=== PATIENT | female | born 1985 | race Caucasian/White ===

== ENCOUNTER → 2017-10-11 | Outpatient (CLI) | payer OTHER ==
[~2017-10-11] MED LIST: PRENTAB26 PO
== END | disposition home or self-care (01) ==
LOC: C.LABSPEC 16:58
PROVIDERS: ATTEND Obstetrics & Gynecology
DX: Z34.81 Encounter for supervision of other normal pregnancy, first trimester (principal)

== ENCOUNTER → 2017-10-18 | Outpatient (CLI) | payer OTHER | END | disposition home or self-care (01) | LOC: C.PAPS 10:54 | PROVIDERS: ATTEND Obstetrics & Gynecology | DX: O26.849 Uterine size-date discrepancy, unspecified trimester (principal); Z34.81 Encounter for supervision of other normal pregnancy, first trimester ==

== ENCOUNTER → 2017-10-18 | Outpatient (CLI) | payer OTHER | END | disposition home or self-care (01) | LOC: C.LABSPEC 17:49 | PROVIDERS: ATTEND Obstetrics & Gynecology | DX: Z34.83 Encounter for supervision of other normal pregnancy, third trimester (principal) ==

== ENCOUNTER 2018-05-22 03:15 | Inpatient (IN) ==
[2018-05-22] MEDS ORDERED: OXYTOCIN 30 UNITS/500 ML BAG IV PRN ×2 (03:48→05:44)
[2018-05-22] MEDS ORDERED: LACTATED RINGER'S 1,000 ML IV PRN (03:48)
--- NOTE | 2018-05-22 03:56 | History & Physical Report ---
Date of Service May 22, 2018 Assessment & Plan (1) 40 weeks gestation of : 33yo @ 40 2, spontaneous labor Admit to L&D, prepare for quick delivery. History of Present Illness Chief Complaint: labor Primary Care Provider: NO PCP 33yo @ 40 2 presents in spontaneous labor. SROM clear fluid at home, and contractions. + movement, no vaginal bleeding. uncomplicated. Allergies Allergy/AdvReac Type Severity Reaction Status Date / Time No Known Allergies Allergy Verified 05/22/18 03:54 Home Medications Home Medications Medication Instructions Recorded Confirmed Type Multivit/Min/Iron/Fol Ac/Pren 1 tab PO DAILY #1 tab 02/01/14 History ( Vitamin) Patient History Medical History [place] teeth extracted at age 20 Surgical History History of colposcopy 2004 Physical Exam Vital Signs (Past 24 Hours): Last Vital Signs Pulse 71 05/22/18 03:51 BP 116/71 05/22/18 03:51 Physical Exam: Gen: AAOx3 NAD CV: RRR L: CTAB Abd: soft, gravid Ext: no edema SVE: complete dilation, +2 station on arrival FHT: unable to obtain tracing prior to delivery, as patient arrived completely dilated and ready to push
[2018-05-22] MEDS ORDERED: LACTATED RINGER'S 1,000 ML IV SCH (04:00)
--- NOTE | 2018-05-22 04:01 | Procedure Note ---
Vaginal Delivery Summary Date of Service May 22, 2018 Vaginal Delivery Summary Predelivery diagnoses: 33-year-old at 40 weeks 2 days, spontaneous labor Post delivery diagnoses: Same Procedure: Spontaneous vaginal delivery, repair of first-degree perineal laceration and left periurethral/labial laceration Findings: Viable female , Apgars 8 and 9, first-degree perineal laceration and left periurethral/labial laceration. Weight pending, please see nursery records. Surgeon: Dr. Lynn Estimated blood loss: 300 mL [place] Complications: None Procedure: The patient presented in spontaneous labor, and on arrival to labor and delivery was completely dilated with +2 station and ready to push. Due to quick nature of delivery, unable to obtain heart tracing. However, heart tones were auscultated in the 110s. The patient began to push, and spontaneously vaginally delivered a viable female from the cephalic presentation. The head delivered in the right occiput anterior position, followed by anterior shoulder, followed by posterior shoulder, followed by body. Baby is placed on mother's abdomen, and a spontaneous cry was heard. The cord was doubly clamped and cut after waiting at least 1 minute for delayed cord clampin the placenta was delivered spontaneously intact with a three-vessel cord. The uterus and vagina were swept of all clots and debris. IV Pitocin was given. The cervix vagina and perineum were inspected, and a first-degree perineal laceration was noted. Lacerations were injected with 1% lidocaine for anesthetic. This was repaired in standard fashion with 3-0 Vicryl. There is also a small left periurethral/labial laceration that was bleeding, therefore one [id number] stitch was used to obtain hemostasis. Excellent hemostasis was observed and the uterus was firm. Sponge, instrument, needle counts were correct X2 at the conclusion of the delivery. Mother and baby are recovering in stable and good condition in the room.
[2018-05-22 04:19] LABS: Hematocrit (blood only) 35.9 % (37-47); Hemoglobin 12.3 g/dL (12.0-16.0); Mean Corpuscular Hgb Conc 34.3 g/dL (32-36); Mean Corpuscular Volume 90.7 fL (80-100); Mean Platelet Volume 9.6 fL (7.4-10.4); Platelet Count 199 K/uL (130-400); RDW Coefficient of Variation 13.6 % (11.5-14.5); RDW Standard Deviation 44.8 fL (36.4-46.3); Red Blood Count 3.96 M/uL (4.2-5.4); White Blood Count 10.11 K/uL (4.8-10.8)
[2018-05-22] MEDS ORDERED: HYDROCORTISONE ACETATE 25 MG SUPP PR PRN (05:44)
[2018-05-22] MEDS ORDERED: IBUPROFEN 600 MG TAB PO PRN (05:44)
[2018-05-22] MEDS ORDERED: OXYCODONE/ACETAMINOPHEN 5mg/325mg TAB PO PRN (05:44)
[2018-05-22] MEDS ORDERED: ACETAMINOPHEN 325 MG TAB PO PRN (05:44)
[2018-05-22] MEDS ORDERED: BENZOCAINE 20% AER SPR 82.5 GM CAN EXT PRN (05:44)
[2018-05-22] MEDS ORDERED: DIPHTHERIA/TETANUS/PERTUSSIS 0.5 ML SYR/VIAL IM ONE (05:44)
[2018-05-22] MEDS ORDERED: SUPERCREAM 0.870% 15 GM JAR EXT PRN (05:44)
[2018-05-22] MEDS: DOCUSATE SODIUM 100 MG CAP PO SCH ×2 (08:44→20:51)
[2018-05-22] MEDS: PRENATAL VITAMIN 1 TAB PO SCH (08:44)
--- NOTE | 2018-05-23 07:12 | Obstetrical Progress Note ---
Date of Service May 23, 2018 Assessment & Plan (1) Status post vaginal delivery: 33-year-old at 40 weeks 2 days PPD 1 s/p -Vital signs WNL bp 106/72 T36.7, -no si/sx of anemia. -Pt is doing clinically well -Continue to encourage ambulation as tolerated, Monitor and control pain with motrin prn, Continue diet as tolerated. -Continue to support and encourage breast feeding -Routine care Subjective Pt laying in bed esting with baby. Patient is tolerating her diet, ambulating, passing gas and voiding, still no bm. Reports moderate lochia. Denies H/A, chest pain, palpitations and uti syx. No concerns at this time pain is well controlled. Physical Exam Vital Signs (Past 24 Hours): Last Vital Signs Temp 36.8 C 05/23/18 03:35 Pulse 65 05/23/18 03:35 Resp 18 05/23/18 03:35 BP 106/72 05/23/18 03:35 Constitutional: WD/WN, vitals as above Eyes: normal visual cisneros by confrontation Respiratory: normal respiratory effort, lungs clear to auscultation Cardiovascular: RRR, no murmur, no edema Extremities: no calf tenderness Gastrointestinal (Abdomen): normal bowel sounds, soft, nontender, no hepatosplenomegaly (Uterus Firm and below the umbilicus) Skin: no rashes, warm and dry Results & Data Medications Administered Current Inpatient Medications Acetaminophen (Tylenol) 650 mg PO Q6H PRN PRN Reason: Pain/MANNING/Fever Stop: 06/21/18 05:43 Benzocaine (Dermoplast Pain Relieving Iago) 1 appln EXT PRN PRN PRN Reason: Perineal Discomfort Stop: 06/21/18 05:43 Bisacodyl (Dulcolax) 5 mg PO 1999 [facility] Stop: 05/23/18 20:01 Bisacodyl (Dulcolax) 10 mg NV DAILY PRN PRN Reason: No BM on 2nd post- day Stop: 05/24/18 23:59 Cocaine HCl (Supercream 0.870%) 1 gm EXT BID PRN PRN Reason: Hemorrhoidal Inflammation Stop: 06/05/18 05:43 Docusate Sodium (Colace) 100 mg PO BID OCTAVIO Stop: 06/21/18 08:59 Last Admin: 05/22/18 20:51 Dose: 100 mg Documented by: Hydrocortisone (Anusol Hc) 25 mg NV BID PRN PRN Reason: Hemorrhoidal Inflammation Stop: 06/21/18 05:43 Oxytocin (Pitocin) 30 units in 500 mls @ 333.333 mls/hr IV .Q1H30M PRN; Protocol PRN Reason: BLEEDING CONTROL Stop: 06/21/18 05:43 Ibuprofen (Motrin) 600 mg PO Q4H PRN PRN Reason: Pain/MANNING/Cramping/Fever Stop: 06/21/18 05:43 Oxycodone/Acetaminophen (Percocet 5mg/325mg) 1 tab PO Q4H PRN PRN Reason: Pain not relieved by... Stop: 06/05/18 05:43 Prenat Multivit/[place]/Iron/Folic Ac ( Vitamin) 1 tab PO QAM OCTAVIO Stop: 06/21/18 08:59 Last Admin: 05/22/18 08:44 Dose: 1 tab Documented by: Resident Activity Tracking Resident Involvement: Resident Care Provided Care Provided: Adult Hospital Medicine
[2018-05-23 07:47] LABS: Hematocrit (blood only) 37.2 % (37-47); Hemoglobin 12.7 g/dL (12.0-16.0)
[2018-05-23] MEDS: PRENATAL VITAMIN 1 TAB PO SCH (08:09)
[2018-05-23] MEDS: DOCUSATE SODIUM 100 MG CAP PO SCH (08:09)
[2018-05-23] MEDS ORDERED: BISACODYL 5 MG TABEC PO SCH (20:00)
[2018-05-24] MEDS ORDERED: BISACODYL 10 MG SUPP PR PRN (06:00)
== END 2018-05-23 14:22 | disposition home or self-care (01) | DRG 807 ==
LOC: EDCLIBED → OPB 03:15 → 4S1 03:16 → 4S2 06:00